=== PATIENT | male | born 1965 | race African-American/Black ===

== ENCOUNTER 2020-08-27 21:39 | Emergency (ER) | payer MEDICARE, MEDICAID ==
[~2020-08-27] VITALS: Ht 180.3 cm; Wt 86.2 kg
[~2020-08-27 21:39] MED LIST: AMLODIPINE BESYL5 MG ORAL; ASPIR-LOW81 MG ORAL; ASPIRIN81 MG ORAL; HYDROCODON-ACE1 EA15 ORAL; IRON325 M1 PO; LOTREL 10-40 M1 EACH ORAL; NORCO 10-325 T1 EACH ORAL; NORVASC; PROTONIX40 MG ORAL; SOMA250 MG PO; SOMA350 MG PO; VICODIN ES 7.51 EACH PO
--- NOTE | 2020-08-27 21:40 | Emergency Room Report ---
History of Present Illness General Chief Complaint: Seizure Source: Patient, EMS Present Illness HPI Patient 55-year-old male presents for tonic-clonic seizure. Prior history of seizure disorder after prior head trauma. States he was taking Dilantin previously. Had been off of medications for unknown length of time. Denies any recent Dilantin use. Allergies: Coded Allergies: No Known Allergies (Unverified , 12/21/12) COVID-19 Screening Contact w/high risk pt: No Experienced COVID-19 symptoms?: No COVID-19 Testing performed RF TECHNICIAN: No Patient History Past Medical History: see triage record Reviewed Nursing Documentation: PMH: Agreed; PSxH: Agreed Nursing Documentation-PMH Hx Hypertension: Yes Hx Cerebrovascular Accident: Yes Hx Seizures: Yes Review of Systems All Other Systems: negative except mentioned in HPI Physical Exam Vital Signs Date Time Temp Pulse Resp B/P (MAP) Pulse Ox O2 Delivery O2 Flow Rate FiO2 08/27/20 21:33 98.4 110 18 149/100 (116) 98 Room Air Sp02 EP Interpretation: reviewed, normal General Appearance: normal inspection, well appearing, no apparent distress, alert, GCS 15 Head: atraumatic ENT: normal ENT inspection, hearing grossly normal, normal voice Neck: normal inspection, full range of motion, supple, no bony tend Respiratory: normal inspection, lungs clear, normal breath sounds, no respiratory distress, no retraction, no wheezing Cardiovascular #1: regular rate, rhythm, no edema Gastrointestinal: normal inspection, normal bowel sounds, non tender, soft, no guarding, no hernia Genitourinary: no CVA tenderness Musculoskeletal: normal inspection, back normal, normal range of motion Neurologic: alert, responsive, speech normal, normal inspection Psychiatric: normal inspection, judgement/insight normal, mood/affect normal Medical Decision Making Diagnostic Impression: 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 Differential diagnosis include was not limited to medication noncompliance, electrolyte abnormality, substance abuse among others. Because of complexity of patient's case laboratory tests and imaging studies were ordered. Patient was given medications for seizures was given half load of Dilantin.Noted to have some patient is noted to have some prior history of seizures as well as substance abuse. Patient was given IV fluids and started on IV Dilantin.He was noted to have minimally present Dilantin level. Patient was loaded with total of 1 g of Dilantin. Patient will be discharged home after Dilantin load. This medical record is generated with [employer] terminal carman software. There may be some terminal carman discrepancies related to use of this software Labs Test 08/27/20 22:02 08/27/20 22:13 White Blood Count 8.2 K/UL (4.8-10.8) Red Blood Count 3.64 M/UL (4.70-6.10) Hemoglobin 10.3 G/DL (14.2-18.0) Hematocrit 31.4 % (42.0-52.0) Mean Corpuscular Volume 86 FL (80-99) Mean Corpuscular Hemoglobin 28.3 PG (27.0-31.0) Mean Corpuscular Hemoglobin Concent 32.8 G/DL (32.0-36.0) Red Cell Distribution Width 13.7 % (11.6-14.8) Platelet Count 318 K/UL (150-450) Mean Platelet Volume 5.4 FL (6.5-10.1) Neutrophils (%) (Auto) 60.7 % (45.0-75.0) Lymphocytes (%) (Auto) 24.0 % (20.0-45.0) Monocytes (%) (Auto) 12.8 % (1.0-10.0) Eosinophils (%) (Auto) 0.8 % (0.0-3.0) Basophils (%) (Auto) 1.7 % (0.0-2.0) Sodium Level 122 MMOL/L (136-145) Potassium Level 3.7 MMOL/L (3.5-5.1) Chloride Level 88 MMOL/L (98-107) Carbon Dioxide Level 25 MMOL/L (21-32) Anion Gap 9 mmol/L (5-15) Blood Urea Nitrogen 11 mg/dL (7-18) Creatinine 1.3 MG/DL (0.55-1.30) Estimat Glomerular Filtration Rate > 60 mL/min (>60) Glucose Level 130 MG/DL (74-106) Calcium Level 8.7 MG/DL (8.5-10.1) Total Bilirubin 0.1 MG/DL (0.2-1.0) Aspartate Amino Transf (AST/SGOT) 24 U/L (15-37) Alanine Aminotransferase (ALT/SGPT) 23 U/L (12-78) Alkaline Phosphatase 104 U/L (46-116) Troponin I 0.000 ng/mL (0.000-0.056) Total Protein 7.3 G/DL (6.4-8.2) Albumin 3.5 G/DL (3.4-5.0) Globulin 3.8 g/dL Albumin/Globulin Ratio 0.9 (1.0-2.7) Phenytoin (Dilantin) Level 1.2 ug/mL (10-20) POC Whole Blood Glucose 134 MG/DL (74-106) Last Vital Signs Date Time Temp Pulse Resp B/P (MAP) Pulse Ox O2 Delivery O2 Flow Rate FiO2 08/27/20 21:33 98.4 110 18 149/100 (116) 98 Room Air Status: unchanged Disposition: ADMITTED INPATIENT Condition: Stable Scripts Phenytoin Sodium Extended* (DILANTIN*) 100 Mg Capsule 300 MG ORAL BEDTIME, #90 CAP Prov: Delon Hoover MD 08/27/20 Delon Hoover MD Aug 27, 2020 21:40
[2020-08-27 21:45] VITALS: BP 149/100
[2020-08-27] MEDS ORDERED: Phenytoin 500 MG in NS 110 ML IV ONE (21:45)
--- NOTE | 2020-08-27 21:45 | NUR ---
ED Nurse Note: Patient brought into ED by [facility] 35 from home for witnessed seizure by family. Patient does have history of seizures and takes dilantin at home although he did miss his dose today. Patient is awake and alert, oriented x4. He has no oral trauma or incontinence. He is able to speak in full sentences. Patient placed in bed with seizure precautions in place. No acute distress at this time, denies pain.
[2020-08-27] MEDS ORDERED: DILANTIN100 MG ORAL (22:17)
[2020-08-27 22:31] LABS: BASOPHILS % (AUTO) 1.7 % (0.0-2.0); EOSINOPHILS % (AUTO) 0.8 % (0.0-3.0); HEMATOCRIT 31.4 % (42.0-52.0); HEMOGLOBIN 10.3 G/DL (14.2-18.0); MEAN CORPUSCULAR VOLUME 86 FL (80-99); MONOCYTES % (AUTO) 12.8 % (1.0-10.0); NEUTROPHILS % (AUTO) 60.7 % (45.0-75.0); PLATELET COUNT 318 K/UL (150-450); RED BLOOD COUNT 3.64 M/UL (4.70-6.10); RED CELL DISTRIBUTION WIDTH 13.7 % (11.6-14.8); WHITE BLOOD COUNT 8.2 K/UL (4.8-10.8)
[2020-08-27 22:43] LABS: ANION GAP 9 mmol/L (5-15); BLOOD UREA NITROGEN 11 mg/dL (7-18); CALCIUM 8.7 MG/DL (8.5-10.1); CARBON DIOXIDE 25 MMOL/L (21-32); CHLORIDE 88 MMOL/L (98-107); CREATININE 1.3 MG/DL (0.55-1.30); POTASSIUM 3.7 MMOL/L (3.5-5.1); SODIUM 122 MMOL/L (136-145)
[2020-08-27 22:47] LABS: ALANINE AMINOTRANSFERASE 23 U/L (12-78); ALBUMIN 3.5 G/DL (3.4-5.0); ALBUMIN/GLOBULIN RATIO 0.9 (1.0-2.7); ALKALINE PHOSPHATASE 104 U/L (46-116); ASPARTATE AMINO TRANSFERASE 24 U/L (15-37); BILIRUBIN,TOTAL 0.1 MG/DL (0.2-1.0)
[2020-08-27] MEDS ORDERED: Phenytoin 500 MG in NS 110 ML IVPB ONE (23:00)
--- NOTE | 2020-08-27 23:00 | NUR ---
ED Nurse Note: Patient provided with juice; tolerated well. He also used urinal at bedside.
--- NOTE | 2020-08-27 23:35 | NUR ---
ED Nurse Note: Patient is aaox4. Second dose of Dilantin initiated, but patient now wants to go home and not finish medication. MD aware. Will DC patient.
[2020-08-27 23:45] VITALS: BP 138/85
--- NOTE | 2020-08-27 23:45 | NUR ---
ER DISCHARGE NOTE: Patient is cleared to be discharged per ERMD, pt is aox4, on room air, with stable vital signs. pt was given dc and prescription instructions, pt was able to verbalize understanding, pt id band and iv site removed without complications. pt is able to ambulate with steady gait. pt took all belongings.
== END 2020-08-27 23:45 | disposition home or self-care (01) ==
LOC: EDBD 21:39 → EMR 22:23
DX: G40.909 Epilepsy, unspecified, not intractable, without status epilepticus (principal); Q66.89 Other specified congenital deformities of feet; I10 Essential (primary) hypertension; Z86.73 Personal history of transient ischemic attack (TIA), and cerebral infarction without residual deficits; M19.90 Unspecified osteoarthritis, unspecified site
CPT/HCPCS: 36415; 80053; 80185; 82962; 84484; 85025; 96365; 96366; 99284; J1165; J7030